=== PATIENT | male | born 1960 | race Caucasian/White ===

== ENCOUNTER 2018-02-17 13:56 | Day surgery (SDC) | payer OTHER ==
[~2018-02-17] VITALS: Ht 172.7 cm; Wt 92.3 kg
[~2018-02-17 13:56] MED LIST: AZIT500T2 PO; OMEP20TA62 PO
[2018-02-17 14:25] VITALS: BP 117/88
[2018-02-17] MEDS ORDERED: APREPITANT 40 MG CAPSULE PO STA (14:28)
[2018-02-17] MEDS ORDERED: LACTATED RINGERS 1,000 ML IV SCH ×2 (14:30→19:30)
[2018-02-17] MEDS ORDERED: ONDANSETRON ODT 8 MG PO ONE (14:30)
[2018-02-17] MEDS ORDERED: OXYcodone IR 5MG TABLET PO ONE (14:30)
[2018-02-17] MEDS ORDERED: GABAPENTIN 300 MG CAPSULE PO ONE (14:30)
[2018-02-17] MEDS ORDERED: ACETAMINOPHEN 500 MG TABLET PO ONE (14:30)
[2018-02-17] MEDS ORDERED: FENTANYL PF 250 MCG/5ML ONE ×2 (16:02)
[2018-02-17] MEDS ORDERED: MIDAZOLAM 1 MG/ML, 2ML ONE ×2 (16:02)
[2018-02-17] MEDS ORDERED: THROMBIN 5,000 UNIT VIAL TP ONE (16:06)
[2018-02-17] MEDS ORDERED: LIDOCAINE/PF 1%, 30ML ONE (16:06)
[2018-02-17] MEDS ORDERED: COCAINE TOPICAL SOLN 4%, 4ML ONE (16:07)
[2018-02-17] MEDS ORDERED: OXYMETAZOLINE NASAL SPRAY 0.05%, 15ML ONE (16:07)
[2018-02-17] MEDS ORDERED: BACITRACIN OINT 500U/GM, 15 GM ONE (16:07)
[2018-02-17] MEDS ORDERED: EPINEPHRINE 1 MG/ML, 1ML ONE (16:07)
[2018-02-17] MEDS ORDERED: WATER-INJECTION,STERILE 10 ML IV ONE (16:10)
[2018-02-17] MEDS ORDERED: CEFAZOLIN 1,000 MG ONE ×2 (16:10)
[2018-02-17] MEDS ORDERED: PROPOFOL 10 MG/ML, 20ML ONE (16:12)
[2018-02-17] MEDS ORDERED: ROCURONIUM 10MG/ML,5ML ONE (16:12)
[2018-02-17] MEDS ORDERED: PROPOFOL 50 ML ONE ×2 (16:13→17:19)
[2018-02-17] MEDS ORDERED: DEXAMETHASONE 4 MG/ML, 1ML ONE ×2 (16:14)
[2018-02-17] MEDS ORDERED: HYDROmorphone 1 MG/ML, 1ML IV PRN (18:30)
[2018-02-17] MEDS ORDERED: LABETALOL 5MG/ML, 20ML IV PRN (18:30)
[2018-02-17] MEDS ORDERED: OXYcodone 5 MG/5 ML ORAL.SOL UDC PO PRN (18:30)
[2018-02-17] MEDS ORDERED: MEPERIDINE/PF 25MG/0.5ML IVPush PRN (18:30)
[2018-02-17] MEDS ORDERED: hydrALAzine 20 MG/ML, 1ML IV PRN (18:30)
[2018-02-17] MEDS ORDERED: ONDANSETRON ODT 8 MG PO PRN (18:30)
[2018-02-17] MEDS ORDERED: HALOPERIDOL 5 MG/ML IV PRN (18:30)
[2018-02-17] MEDS ORDERED: FENTANYL PF 100 MCG/2ML IV PRN (18:30)
[2018-02-17] MEDS ORDERED: MORPHINE SULFATE 4 MG/ML, 1ML IVPush PRN (19:30)
[2018-02-17] MEDS ORDERED: ONDANSETRON 2MG/ML, 2ML IVPush PRN (20:00)
== END 2018-02-17 20:40 ==
LOC: OR 13:56 → 4NOR 19:24 → OR 20:40
PROVIDERS: ATTEND Otolaryngology
DX: J34.2 Deviated nasal septum (principal); J34.3 Hypertrophy of nasal turbinates; M95.0 Acquired deformity of nose; J33.9 Nasal polyp, unspecified; J34.89 Other specified disorders of nose and nasal sinuses; K21.9 Gastro-esophageal reflux disease without esophagitis
CPT/HCPCS: 30140; 30465; 30520; 88304; G0378; J0171; J0690; J1100; J2250; J2704; J3010; J3490; J7120; J8501; Q0162